=== PATIENT | female | born 1965 | race Caucasian/White ===

== ENCOUNTER → 2017-06-16 | Emergency (ER) | payer OTHER ==
[~2017-06-16] VITALS: Ht 152.4 cm; Wt 81.6 kg
[~2017-06-16] MED LIST: ALBUTEIN; AMBIEN10 MG; ATROVENT HFA12.9 GM; BUDEO.25; COZAAR100 MG; LIPITOR20 MG; MOTRIN IB200 MG; PREDNISOLO15 MG/5 ML; XANAX1 MG
== END | disposition left against medical advice (07) ==
LOC: ER 12:08
DX: B34.9 Viral infection, unspecified (principal); J11.1 Influenza due to unidentified influenza virus with other respiratory manifestations

== ENCOUNTER 2021-11-18 16:25 | Emergency (ER) | payer OTHER ==
[~2021-11-18] VITALS: Ht 149.9 cm; Wt 90.7 kg
[2021-11-18] MEDS ORDERED: KETO10TA2 PO (20:46)
== END 2021-11-18 20:56 | disposition home or self-care (01) ==
LOC: ER 16:25
DX: K40.90 Unilateral inguinal hernia, without obstruction or gangrene, not specified as recurrent (principal); Z88.8 Allergy status to other drugs, medicaments and biological substances; J45.909 Unspecified asthma, uncomplicated; E78.00 Pure hypercholesterolemia, unspecified; I10 Essential (primary) hypertension; M19.90 Unspecified osteoarthritis, unspecified site; K57.30 Diverticulosis of large intestine without perforation or abscess without bleeding

== ENCOUNTER 2024-08-15 12:27 | Emergency (ER) | payer OTHER ==
[~2024-08-15] VITALS: Ht 149.9 cm; Wt 174.6 kg
[~2024-08-15 12:27] MED LIST changes: +KETO10TA2 PO
[2024-08-15 13:03] VITALS: BP 147/79; O2SAT 99
[2024-08-15] MEDS ORDERED: NEURONTIN600 M1 (13:05)
[2024-08-15] MEDS ORDERED: KETOROLAC TROMETHAMINE 30 MG VIAL ONE (13:29)
[2024-08-15] MEDS ORDERED: KETOROLAC TROMETHAMINE 30 MG VIAL IV ONE (13:30)
[2024-08-15 14:01] LABS: HEMATOCRIT 37.7 % (36.0-45.00); HEMOGLOBIN 12.1 g/dL (12.0-15.00); MEAN CELL VOLUME 88.2 fL (80.00-100.00); MEAN CORPUSCULAR HEMOGLOBIN 28.2 pg (27.00-32.0); MEAN CORPUSCULAR HGB CONC 31.9 g/dl (32.0-36.0); PLATELET COUNT 317 K/uL (150-450); RED BLOOD COUNT 4.28 M/uL (4.00-6.00); RED CELL DISTRIBUTION WIDTH 14.8 % (11.5-14.5)
[2024-08-15 14:29] LABS: INR 0.98; PARTIAL THROMBOPLASTIN TIME 27.6 SECONDS (22.0-34.0); PROTHROMBIN TIME 10.7 SECONDS (9.0-11.5)
[2024-08-15 14:30] LABS: ALBUMIN 3.9 gm/dL (3.4-5.0); BILIRUBIN TOTAL 0.25 mg/dL (0.3-1.2); CALCIUM 9.9 mg/dL (8.5-10.1); CREATININE SERUM 0.5 mg/dL (0.55-1.02); GFR 125.85; GLOBULINA 3.6 G/DL (2.4-3.5); POTASSIUM 4.06 mEq/L (3.5-5.1); TOTAL PROTEIN 7.5 gm/dL (6.4-8.2)
[2024-08-15 14:55] LABS: URINE APPEARANCE Clear; URINE BILIRRUBIN Negative (NEGATIVE); URINE BLOOD Negative; URINE COLOR Yellow; URINE GLUCOSE Negative (NEGATIVE); URINE KETONE Negative (NEGATIVE); URINE LEUKOCYTE Negative; URINE NITRATE Negative; URINE PROTEIN Negative (NEGATIVE); URINE UROBILINOGEN 0.2 E.U./dl
[2024-08-15 14:56] LABS: URINE BACTERIA 14.6 uL (0.0-1933); URINE EPITHELIAL CELLS 2.4 uL (0.0-38.8); URINE RBC 3.2 uL (0.0-20.8)
== END 2024-08-15 17:16 | disposition home or self-care (01) ==
LOC: ER 12:28
PROVIDERS: General Practice
DX: K40.90 Unilateral inguinal hernia, without obstruction or gangrene, not specified as recurrent (principal); K76.89 Other specified diseases of liver; Q63.2 Ectopic kidney; Z88.8 Allergy status to other drugs, medicaments and biological substances